=== PATIENT | male | born 2000 | race Caucasian/White ===

== ENCOUNTER 2020-11-15 14:36 | Outpatient (REF) | payer MEDICAID, SELFPAY ==
[2020-11-15 21:15] LABS: HCT 43.6 % (40.0-50.0); HGB 14.8 g/dL (13.5-17.5); MCH 29.9 pg (27.0-33.0); MCHC 33.9 % (32.0-36.0); MCV 88.1 fL (80-95); MPV 12.6 fL (8.0-11.0); Platelet Count 176 10^3/uL (130-400); RBC 4.95 10^6/uL (4.36-5.78); RDW 12.2 % (11.8-14.1); RDW-SD 39.5 fL; WBC 6.64 10^3/uL (4.4-10.8)
[2020-11-15 21:51] LABS: Folate 2.6 ng/mL (8.6-20.0); Vitamin B12 485 pg/mL (193-986)
== END 2020-11-15 14:37 | disposition home or self-care (01) ==
LOC: NCHCN 14:36
PROVIDERS: Visit Provider Nurse Practitioner Family
DX: K12.0 Recurrent oral aphthae (principal)
CPT/HCPCS: 85027; 82607; 82746

== ENCOUNTER 2022-01-29 21:42 | Outpatient (REF) | payer BC, MEDICAID, SELFPAY ==
[2022-01-29 22:06] LABS: Abs Immature Grans 0.04 10^3/uL (0.0-0.06); Absolute Lymphocyte Count 2.12 10^3/uL (1.2-3.4); Absolute Monocyte Count 0.59 10^3/uL (0.1-0.8); Absolute Neutrophil Count 8.27 10^3/uL (1.2-6.7); Basophils % 0.4; Eosinophils % 1.2; HCT 44.3 % (40.0-50.0); HGB 15.2 g/dL (13.5-17.5); Immature Grans % 0.4; Lymphocytes % 18.9; MCH 29.8 pg (27.0-33.0); MCHC 34.3 % (32.0-36.0); MCV 87 fL (80-95); MPV 12.3 fL (8.0-11.0); Monocytes % 5.3; Neutrophils % 73.8; Platelet Count 197 10^3/uL (130-400); RDW 11.6 % (11.8-14.1); RDW-SD 37.1 fL; WBC 11.21 10^3/uL (4.4-10.8)
[2022-01-29 22:07] LABS: Absolute Basophil Count 0.04 10^3/uL (0.0-0.2); Absolute Eosinophil Count 0.13 10^3/uL (0.0-0.7)
[2022-01-29 22:23] LABS: ALT 48 U/L (16-63); AST 25 U/L (15-37); Albumin 4.5 g/dL (3.4-5.0); Alkaline Phosphatase 60 U/L (46-116); Anion Gap 5.6 mmol/L (3-11); BUN 16 mg/dL (7-18); Bilirubin, Total 0.4 mg/dL (0.2-1.0); CO2 31.4 mmol/L (21.0-32.0); CREATININE 0.9 mg/dL (0.70-1.30); Calcium 9.2 mg/dL (8.5-10.1); Calculated LDL 82 mg/dL (<100); Chloride 101 mmol/L (98-107); Cholesterol 150 mg/dL (<200); Estimated GFR 124.61 (mL/min/1.73m2); Glucose 92 mg/dL (74-106); HDL Cholesterol 48 mg/dL (40-60); Potassium 3.6 mmol/L (3.5-5.1); Sodium 138 mmol/L (136-145); TSH 1.53 uIU/mL (0.36-3.74); Total Protein 7.8 g/dL (6.4-8.2); Triglyceride 104 mg/dL (<150)
== END 2022-01-29 21:43 | disposition home or self-care (01) ==
LOC: NCHCN 21:42
PROVIDERS: Visit Provider Nurse Practitioner Family
DX: F41.9 Anxiety disorder, unspecified (principal); Z00.00 Encounter for general adult medical examination without abnormal findings
CPT/HCPCS: 80053; 80061; 84443; 85025